=== PATIENT | female | born 1955 | race Caucasian/White ===

== ENCOUNTER 2018-08-13 10:27 | Day surgery (SDC) | payer OTHER ==
[~2018-08-13] VITALS: Ht 157.5 cm; Wt 57.6 kg
[2018-08-13] MEDS ORDERED: LACTATED RINGERS 1,000 ML IV SCH (10:30)
[2018-08-13] MEDS ORDERED: MITOMYCIN 0.2 MG KIT OP NR (10:30)
[2018-08-13] MEDS ORDERED: SERT25TA74 PO (11:09)
[2018-08-13] MEDS ORDERED: CHOL200077 PO (11:09)
[2018-08-13] MEDS ORDERED: METH50TA5 PO (11:09)
[2018-08-13] MEDS ORDERED: NORT25CA PO (11:09)
[2018-08-13] MEDS ORDERED: SIMV10TA6 PO (11:09)
[2018-08-13] MEDS ORDERED: VIT1TABL5 PO (11:09)
[2018-08-13] MEDS ORDERED: OMEP40CA34 PO (11:09)
[2018-08-13] MEDS ORDERED: LEVO50TA8 PO (11:09)
[2018-08-13] MEDS ORDERED: FENTANYL CITRATE/PF 50MCG/ML 2ML VIAL ONE (12:58)
[2018-08-13] MEDS ORDERED: PROPOFOL 200MG/20ML VIAL IV ONE (12:58)
[2018-08-13] MEDS ORDERED: MIDAZOLAM HCL 2 MG/2 ML VIAL ONE (12:58)
[2018-08-13] MEDS ORDERED: LABETALOL HCL 20MG/4ML CARPUJECT IV PRN (13:15)
[2018-08-13] MEDS ORDERED: ONDANSETRON HCL 4MG/2ML INJ IV PRN (13:15)
[2018-08-13] MEDS ORDERED: MEPERIDINE HCL/PF 25MG/ML CPJ IV PRN (13:15)
[2018-08-13] MEDS ORDERED: HYDROMORPHONE HCL/PF 2MG/ML CPJ IV PRN (13:15)
[2018-08-13] MEDS ORDERED: BUPIVACAINE HCL/PF 0.75% (7.5MG/ML) 10ML ONE (13:22)
[2018-08-13] MEDS ORDERED: ACETYLCHOLINE CHLORIDE INTRAOCULAR SOLUTION 1:100 ELECTROLYTE DILUENT IO ONE (13:22)
[2018-08-13] MEDS ORDERED: NEO/POLYMYX B SULF/DEXAMETH OPHTH OINT 3.5GM ONE (13:22)
[2018-08-13] MEDS ORDERED: LIDOCAINE HCL 2%/EPINEPHRINE 1:100,000 20 ML VIAL INFIL ONE (13:22)
[2018-08-13] MEDS ORDERED: LIDOCAINE HCL/PF 2% 20 MG/ML 10ML VIAL ONE (13:22)
[2018-08-13] MEDS ORDERED: PREDNISOLONE ACETATE 1% OPHTH DROPS 1ML ONE (13:22)
[2018-08-13] MEDS ORDERED: BALANCED SALT IRRIG SOLN 15ML ONE (13:22)
[2018-08-13] MEDS ORDERED: TETRACAINE 0.5% OPHTH DROPS 4ML ONE (13:22)
[2018-08-13] MEDS ORDERED: CIPROFLOXACIN 0.3% OPHTH SOLN 2.5ML ONE (13:22)
[2018-08-13] MEDS ORDERED: ONDANSETRON HCL 4MG/2ML INJ ONE (14:08)
[2018-08-13] MEDS ORDERED: DEXAMETHASONE 4MG/ML 1ML VIAL ONE (14:08)
== END 2018-08-13 14:25 | disposition home or self-care (01) ==
LOC: OR 10:27
PROVIDERS: ATTEND Ophthalmology
DX: H40.89 Other specified glaucoma (principal); K21.9 Gastro-esophageal reflux disease without esophagitis; E03.9 Hypothyroidism, unspecified; F32.9 Major depressive disorder, single episode, unspecified; E78.00 Pure hypercholesterolemia, unspecified; J45.909 Unspecified asthma, uncomplicated; M81.0 Age-related osteoporosis without current pathological fracture; Z90.710 Acquired absence of both cervix and uterus; Z98.51 Tubal ligation status; Z79.899 Other long term (current) drug therapy; Z79.82 Long term (current) use of aspirin
CPT/HCPCS: 66170; J1100; J2250; J2405; J2704; J3010; J3490; J9280